=== PATIENT | female | born 1990 | race African-American/Black ===

== ENCOUNTER 2022-03-17 14:43 | Emergency (ER) | payer OTHER ==
[~2022-03-17] VITALS: Ht 160 cm; Wt 52.3 kg
[2022-03-17] MEDS ORDERED: KETOROLAC TROMETH 60MG/2ML VIAL IM ONE (21:15)
[2022-03-17 21:20] VITALS: BP 129/79
== END 2022-03-17 21:34 | disposition home or self-care (01) ==
LOC: ER 14:43
DX: M54.2 Cervicalgia (principal)
CPT/HCPCS: 72040; 96372; 99283; J1885

== ENCOUNTER 2024-06-19 19:46 | Inpatient (IN) | payer OTHER ==
[~2024-06-19] VITALS: Ht 160 cm; Wt 50.2 kg
--- NOTE | 2024-06-19 20:35 | ED.PDOC ---
History of Present Illness HPI Comments 34 y/o F brought in by family complaining of nausea and vomiting for the past 4 days, initially associated with diffuse abdominal pain, now associated with chest pain and shortness of breath. She denies any fever, diarrhea, constipation or dysuria. Chief Complaint: Nausea/Vomiting Time Seen by MD: 20:00 Primary Care Provider: none Reviewed Notes: Nurses Notes, Medications, Allergies Allergies: Coded Allergies: NO KNOWN ALLERGIES (Unverified , 03/17/22) Information Source: Patient Mode of Arrival: Wheelchair Severity: Moderate Timing: Days Duration: Since onset Prehospital treatment: None Past Medical History PAST MEDICAL HISTORY: Denies Surgical History: Denies all surgeries EARTH BURNER History: Denies all EARTH BURNER Hx Family History Family History: Reviewed,noncontributory to illness Social History Smoker: Non-Smoker Alcohol: Denies ETOH Use Drugs: Denies Drug Use Lives In: Home All Other Systems: Reviewed and Negative (Comprehensive systems review obtained and negative except for what is stated in the HPI.) Physical Exam General Appearance: Moderate Distress HEENT: Other (Pupils and face symmetric, dry mucous membranes) Neck: Full Range of Motion, Normal Inspection Respiratory: Lungs Clear, No Accessory Muscle Use, No Respiratory Distress, Normal Breath Sounds Cardiovascular: No Edema, No JVD, Tachycardia Breast Exam: Deferred Gastrointestinal: Diffuse, Soft, Tenderness Genitalia: Deferred Pelvic: Deferred Rectal: Deferred Extremities: Normal inspection, Normal range of motion, Non-tender, No pedal edema Neurologic: Alert (Oriented x4), Normal Affect, Other (Very anxious. Moves all extremities. No gross focal deficit.) Cerebellar Function: NOT DONE Reflexes: NOT DONE Skin: Dry, Pallor, Warm Lymphatic: NOT DONE Was a procedure done? Was a procedure done?: No EKG EKG : Comments Atrial rhythm, rate 82, normal intervals, normal axis, normal QRS, upsloping ST elevation in leads V 2 through V6 consistent with early repolarization, no other ST/T changes. Differential Dx Considerations may include: Gastritis, gastroenteritis, pancreatitis, bowel obstruction, colitis, biliary tract disease, ischemic bowel, UTI, anxiety, ACS, NC, arrhythmia, chest wall pain, respiratory infection, among others X-Ray, Labs, Meds, VS Vital Signs Date Time Temp Pulse Resp B/P (MAP) Pulse Ox O2 Delivery O2 Flow Rate FiO2 06/20/24 00:09 87 19 99 Room Air* 0 21 06/19/24 22:47 98.9 89 19 127/93 (104) 99 98.9 06/19/24 20:48 82 06/19/24 20:06 97.7 113 19 126/77 (93) 100 Lab Test 06/19/24 22:39 06/19/24 21:47 06/19/24 20:30 Range/Units Lactic Acid Level 1.9 2.9 *H 0.4-2.0 mmol/L Troponin I High Sensitivity 4 4 </=34 ng/L White Blood Count 14.8 H 4.4-10.8 10^3/uL Red Blood Count 5.49 H 4.0-5.20 10^6/uL Hemoglobin 16.1 12.2-16.2 g/dL Hematocrit 48.2 H 36.0-46.0 % Mean Corpuscular Volume 87.7 80.0-100.0 fL Mean Corpuscular Hemoglobin 29.3 28.0-32.0 pg Mean Corpuscular Hemoglobin Concent 33.4 32.0-36.0 g/dL Red Cell Distribution Width 14.4 H 11.8-14.3 % Platelet Count 430 140-450 10^3/uL Mean Platelet Volume 8.1 6.9-10.8 fL Neutrophils (%) (Auto) 91.5 H 37.0-80.0 % Lymphocytes (%) (Auto) 5.9 L 10.0-50.0 % Monocytes (%) (Auto) 2.3 0.0-12.0 % Eosinophils (%) (Auto) 0.0 0.0-7.0 % Basophils (%) (Auto) 0.3 0.0-2.0 % Neutrophils # (Auto) 13.6 H 1.6-8.6 10 ^3/uL Lymphocytes # (Auto) 0.9 0.4-5.4 10 ^3/uL Monocytes # (Auto) 0.3 0-1.3 10 ^3/uL Eosinophils # (Auto) 0 0-0.8 10 ^3/uL Basophils # (Auto) 0 0-0.2 10 ^3/uL Nucleated Red Blood Cells 0.0 % Sodium Level 133 L 136-145 mmol/L Potassium Level 3.4 L 3.5-5.1 mmol/L Chloride Level 98 98-107 mmol/L Carbon Dioxide Level 16 L 20-31 mmol/L Anion Gap 19 H 5-15 Blood Urea Nitrogen 17 9-23 mg/dL Creatinine 1.00 0.550-1.02 mg/dL Glomerular Filtration Rate Calc 76 >90 mL/min BUN/Creatinine Ratio 17.0 10.0-20.0 Serum Glucose 153 H 74-106 mg/dL Calcium Level 10.7 H 8.7-10.4 mg/dL Total Bilirubin 1.7 H 0.2-1.0 mg/dL Aspartate Amino Transferase (AST) 33 13-40 U/L Alanine Aminotransferase (ALT) 45 H 7-40 U/L Alkaline Phosphatase 68 46-116 U/L B-Type Natriuretic Peptide 5.14 0-100 pg/mL Total Protein 9.1 H 5.7-8.2 g/dL Albumin 5.6 H 3.2-4.8 g/dL Lipase 37 12-53 U/L Beta HCG, Quantitative 0.3 L 1.5-4.2 mIU/mL Current Medications Medications (Trade) Dose Ordered Sig/Joseph Route Start Time Stop Time Status Last Admin Sodium Chloride 2,000 ml @ 1,000 mls/hr Q2H ONCE IV 06/19/24 20:15 06/19/24 22:14 DC 06/19/24 23:05 Ondansetron HCl (Zofran) 4 mg ONCE ONCE IV 06/19/24 20:15 06/19/24 20:16 DC 06/19/24 23:06 Pantoprazole Sodium (Protonix) 40 mg ONCE ONCE IV 06/19/24 20:15 06/19/24 20:16 DC 06/19/24 23:06 PROCEDURE(s): CXRP - CHEST PORTABLE REASON: cp ORDER NUMBER(s): [id number], ACCESSION NUMBER(s): [id number] CHEST RADIOGRAPH Indication: cp Technique: Single frontal view of the chest was obtained Comparison: None FINDINGS: Lines and Tubes: None Lungs: Clear Pleura: No effusion. No pneumothorax. Cardiomediastinal contours: Unremarkable Bones: Unremarkable IMPRESSION: Clear lungs. X-Ray, Labs, Meds, VS Comment 34-year-old female with no significant past medical history complaining of nausea, vomiting and chest pain. Vitals remarkable for heart rate 113 Exam remarkable for tachycardia and anxiety Rhythm strip independently interpreted by me: Atrial rhythm, rate 82, no ectopy. Chest x-ray unremarkable CT abdomen and pelvis CBC remarkable for WBC 14.8, metabolic panel remarkable for sodium 133, potassium 3.4, CO2 16, lactate 2.9, now down to 1.9, troponins negative x2, BNP normal, lipase normal, UA pending Patient treated with the following in the ED: 2 L 0.9 normal saline IV bolus, Protonix 40 mg IV, Zofran 4 mg IV. Effervescent potassium 50 mEq p.o. was ordered, however patient stated she was still having nausea and did not think she could tolerate anything po. Reglan 10 mg IV was ordered. Plan is to admit the patient for emesis control. Time of 1ST Reevaluation: 20:30 Reevaluation 1ST: Unchanged Patient Education/Counseling: Diagnosis, Treatment Family Education/Counseling: No Family Present Departure 1 Departure Time of Disposition: 23:56 Impression: Primary Impression: Nausea and vomiting Qualified Codes: R11.2 - Nausea with vomiting, unspecified Additional Impression: Chest pain with low risk for cardiac etiology Disposition: ADMITTED INPATIENT Admit to: Med Surg Condition: Fair Critical Care Note Critical Care Time?: No Stability Stability form required: No Heart Score Heart Score: Heart Score Response (Comments) Value History Slightly Suspicious 0 EKG Repolarization Disturb 1 Age <45 0 Risk Factors No known risk factors 0 Troponin Normal limit 0 Total 1 I personally scribed for NAT HYMAN MD ([email or web address]) on 06/19/24 at 20:35. Electronically submitted by Jaret Reynolds ([email or web address]). I personally scribed for NAT HYMAN MD ([email or web address]) on 06/19/24 at 20:36. Electronically submitted by Jaret Reynolds [email or web address]). NAT HYMAN MD Jun 19, 2024 20:35
[2024-06-19 20:43] LABS: Basophils # (auto) 0 10 ^3/uL (0-0.2); Basophils % (auto) 0.3 % (0.0-2.0); Eosinophils # (auto) 0 10 ^3/uL (0-0.8); Hematocrit 48.2 % (36.0-46.0); Hemoglobin 16.1 g/dL (12.2-16.2); Lymphocytes # (auto) 0.9 10 ^3/uL (0.4-5.4); Lymphocytes % (auto) 5.9 % (10.0-50.0); Mean Corpuscular Hemoglobin 29.3 pg (28.0-32.0); Mean Corpuscular Hgb Conc. 33.4 g/dL (32.0-36.0); Mean Corpuscular Volume 87.7 fL (80.0-100.0); Monocytes # (auto) 0.3 10 ^3/uL (0-1.3); Monocytes % (auto) 2.3 % (0.0-12.0); Neutrophils # (auto) 13.6 10 ^3/uL (1.6-8.6); Neutrophils % (auto) 91.5 % (37.0-80.0); Platelet Count (auto) 430 10^3/uL (140-450); Red Blood Cells 5.49 10^6/uL (4.0-5.20); Red Cell Distribution Width 14.4 % (11.8-14.3); White Blood Cell 14.8 10^3/uL (4.4-10.8)
[2024-06-19 21:49] LABS: Lactic Acid w/Reflex 2.9 mmol/L (0.4-2.0)
[2024-06-19 21:58] LABS: Alkaline Phosphatase 68 U/L (46-116); Anion Gap 19 (5-15); Aspartate Aminotransferase 33 U/L (13-40); Blood Urea Nitrogen 17 mg/dL (9-23); Chloride 98 mmol/L (98-107); Lipase 37 U/L (12-53)
[2024-06-19 22:01] LABS: Alanine Aminotransferase 45 U/L (7-40); Albumin 5.6 g/dL (3.2-4.8); Bilirubin, Total 1.7 mg/dL (0.2-1.0); Calcium 10.7 mg/dL (8.7-10.4); Carbon Dioxide 16 mmol/L (20-31); Glucose 153 mg/dL (74-106); Potassium 3.4 mmol/L (3.5-5.1); Sodium 133 mmol/L (136-145); Total Protein 9.1 g/dL (5.7-8.2)
--- NOTE | 2024-06-19 22:37 | DVH ---
CHEST RADIOGRAPH Indication: cp Technique: Single frontal view of the chest was obtained Comparison: None FINDINGS: Lines and Tubes: None Lungs: Clear Pleura: No effusion. No pneumothorax. Cardiomediastinal contours: Unremarkable Bones: Unremarkable IMPRESSION: Clear lungs.
[2024-06-19] MEDS: SODIUM CHLORIDE 0.9% 2,000 ML IV ONE (23:05)
[2024-06-19] MEDS: ONDANSETRON HCL 4 MG/2 ML VIAL IV ONE (23:06)
[2024-06-19] MEDS: PANTOPRAZOLE 40 MG/10 ML VIAL INJ IV ONE (23:06)
[2024-06-20] VITALS (7 sets, daily range): BP systolic 106–138; BP diastolic 59–76; PULSE 69–87; RESP 16–19; TEMP 98.4–98.8; O2SAT 97–100
--- NOTE | 2024-06-20 00:12 | DVH ---
Exam: CT CT AB PEL WO CON-NO ORAL OR IV History: epig pain n/v Comparison Study: None available at time of dictation. Technique: Multidetector spiral CT of the abdomen was performed from lung bases to pubic symphysis. I maging was performed without IV contrast. Axial, coronal and sagittal multiplanar reformats were obta ined from the axial data set by the technologist. Radiation Dose : 1. Abdomen/Pelvis: CTDIvol 5.39 mGy, DLP 289.11 mGy*cm. Findings: Evaluation of solid organs is limited due to lack of intravenous contrast use. Lung Bases: No acute or significant lung base finding. Normal heart size. No pleural or pericardial effusion. Liver: The liver is normal in size. No focal lesions. Gallbladder and Biliary Tree: Unremarkable Spleen: Unremarkable Pancreas: The pancreas is grossly normal in appearance. Adrenal Glands: Unremarkable Kidneys: Kidneys are grossly normal without calculi or hydronephrosis. Bladder: Grossly unremarkable for degree of distention. Bowel: The stomach is grossly normal in appearance. Small bowel and colon are normal in caliber and d istribution. Normal appendix is visualized in the right lower quadrant without findings of appendicit is. Ascites: Absent Lymphadenopathy: No mesenteric, retroperitoneal or periportal lymphadenopathy. Abdominal Wall and Mesentery: Unremarkable. Vasculature: The visualized abdominal aorta is normal in size and caliber. Evaluation of abdominal a nd pelvic vessels is limited due to lack of intravenous contrast. Pelvic Organs: Retroverted and retroflexed uterus. Musculoskeletal: No aggressive focal bony lesions, acute fractures or dislocation. IMPRESSION: No acute abdominal or pelvic findings on this limited noncontrast evaluation. END IMPRESSION:
[2024-06-20] MEDS: METOCLOPRAMIDE HCL 5MG/ml INJ 2ml VIAL IV ONE (00:55)
[2024-06-20] MEDS: POTASSIUM EFFERVESENT TAB 25 MEQ PO ONE (00:55)
[2024-06-20] MEDS: SODIUM CHLORIDE 0.9% 2,000 ML IV ONE (01:07)
[2024-06-20] MEDS: FOLIC ACID 1 MG, MAGNESIUM SULF SDV 50% 8 MEQ, MULTIPLE VITAMIN 10 ML, THIAMINE INJ 100... INJ SCH (01:53)
[2024-06-20 03:11] LABS: Basophils # (auto) 0 10 ^3/uL (0-0.2); Basophils % (auto) 0.1 % (0.0-2.0); Eosinophils # (auto) 0 10 ^3/uL (0-0.8); Hematocrit 41.9 % (36.0-46.0); Hemoglobin 13.9 g/dL (12.2-16.2); Lymphocytes # (auto) 0.9 10 ^3/uL (0.4-5.4); Mean Corpuscular Hemoglobin 29.2 pg (28.0-32.0); Mean Corpuscular Hgb Conc. 33.2 g/dL (32.0-36.0); Mean Corpuscular Volume 87.8 fL (80.0-100.0); Monocytes # (auto) 0.6 10 ^3/uL (0-1.3); Monocytes % (auto) 4.9 % (0.0-12.0); Nucleated Red Blood Cells % 0.1 %; Platelet Count (auto) 365 10^3/uL (140-450); Red Blood Cells 4.77 10^6/uL (4.0-5.20); Red Cell Distribution Width 14.2 % (11.8-14.3); White Blood Cell 12.5 10^3/uL (4.4-10.8)
[2024-06-20 03:26] LABS: Alanine Aminotransferase 37 U/L (7-40); Albumin 4.6 g/dL (3.2-4.8); Alkaline Phosphatase 55 U/L (46-116); Anion Gap 11 (5-15); Aspartate Aminotransferase 24 U/L (13-40); BUN/Creatinine Ratio 19.2 (10.0-20.0); Blood Urea Nitrogen 15 mg/dL (9-23); Calcium 9.6 mg/dL (8.7-10.4); Carbon Dioxide 22 mmol/L (20-31); Chloride 105 mmol/L (98-107); Magnesium 1.9 mg/dL (1.6-2.6); Potassium 3.9 mmol/L (3.5-5.1); Sodium 138 mmol/L (136-145)
[2024-06-20 03:27] LABS: Phosphorus 3.6 mg/dL (2.4-5.1); Total Protein 7.3 g/dL (5.7-8.2)
[2024-06-20 03:32] LABS: Bilirubin, Total 1.4 mg/dL (0.2-1.0); Glucose 126 mg/dL (74-106)
--- NOTE | 2024-06-20 04:54 | DVHHPRES ---
History of Present Illness Resident Creating Document: JOANNA LA RESIDENT Reason for Visit: alcohol withdrawl History of Present Illness A 34-year-old female with no PMHx , brought in by family for persistent nausea, vomiting, and now chest pain and shortness of breath. The patient reports daily tequila use of about 4 shots, with her last drink on Tuesday night. She began experiencing nausea and vomiting on Tuesday, initially with diffuse abdominal pain, now accompanied by chest pain (midsternal, epigastric associated with constant emesis) and mild shortness of breath. Denies fever, diarrhea, constipation, or dysuria. Reports ongoing nausea that has not improved with oral medications; she also endorses recent marijuana use. her CIWA score is 6. LMP began on Tuesday. Review of Systems Constitutional: No: Fever, Chills, Sweats, Weakness, Malaise, Other Eyes: No: Pain, Vision change, Conjunctivae inflammation, Eyelid inflammation, Other, Redness ENT: No: Ear pain, Ear discharge, Nose pain, Nose discharge, Nose congestion, Mouth pain, Mouth swelling, Throat pain, Throat swelling, Other Respiratory: Shortness of breath; No: Cough, Dry, SOB with excertion, Wheezing, Hemoptysis, Pleuritic Pain, Sputum, Wheezing, Other Cardiovascular: Chest Pain; No: Palpitations, Orthopnea, Paroxysmal Noc. Dyspnea, Edema, Lt Headedness, Other Gastrointestinal: Nausea, Vomiting, Abdominal Pain; No: Diarrhea, Constipation, Melena, Hematochezia, Other Genitourinary: No Dysuria, No Frequency, No Incontinence, No Hematuria, No Retention, No Other Musculoskeletal: No: other, neck pain, shoulder pain, arm pain, back pain, hand pain, leg pain, foot pain Skin: No: Rash, Lesions, Jaundice, Bruising, Other Neurological: No: Weakness, Numbness, Incoordination, Change in speech, Confusion, Seizures, Other Allergies: Coded Allergies: NO KNOWN ALLERGIES (Unverified , 03/17/22) Medications Current Medications Medications Dose Ordered Sig/Joseph Route Start Time Stop Time Status Last Admin Dose Admin Folic Acid 1 mg/ Magnesium Sulfate 8 meq/ Multivitamins 10 ml/Thiamine HCl 100 mg/Sodium Chloride 1,013.2 ml @ 126.247 mls/hr DAILY@1800 INJ 06/20/24 01:00 06/20/24 01:53 126.247 MLS/HR Metoclopramide HCl 10 mg Q8HR IV 06/20/24 06:00 Ondansetron HCl 4 mg Q6HPRN IV 06/20/24 06:00 Pantoprazole Sodium 40 mg DAILY IV 06/20/24 10:00 Exam Vital Signs Vital Signs Date Time Temp Pulse Resp B/P (MAP) Pulse Ox O2 Delivery O2 Flow Rate FiO2 06/20/24 02:49 98.1 94 22 121/87 (98) 96 98.1 06/20/24 00:09 Room Air* 0 21 General Appearance: Alert, Oriented X3 HEENT: Other (dehydrated ) Respiratory: Clear to auscultation Cardiovascular: Regular rate, Normal S1, Normal S2 Abdominal: Normal bowel sounds, Soft Extremities: No clubbing, No cyanosis, No edema Skin: No rashes, No breakdown Neuro: Normal gait, Normal speech Psych/Mental Status: Mental status NL, Mood NL Labs/Xrays Labs Test 06/20/24 02:45 06/19/24 22:39 06/19/24 21:47 06/19/24 20:30 Range/Units White Blood Count 12.5 H 4.4-10.8 10^3/uL Red Blood Count 4.77 4.0-5.20 10^6/uL Hemoglobin 13.9 12.2-16.2 g/dL Hematocrit 41.9 # 36.0-46.0 % Mean Corpuscular Volume 87.8 80.0-100.0 fL Mean Corpuscular Hemoglobin 29.2 28.0-32.0 pg Mean Corpuscular Hemoglobin Concent 33.2 32.0-36.0 g/dL Red Cell Distribution Width 14.2 11.8-14.3 % Platelet Count 365 140-450 10^3/uL Mean Platelet Volume 7.8 6.9-10.8 fL Neutrophils (%) (Auto) 88.0 H 37.0-80.0 % Lymphocytes (%) (Auto) 7.0 L 10.0-50.0 % Monocytes (%) (Auto) 4.9 0.0-12.0 % Eosinophils (%) (Auto) 0.0 0.0-7.0 % Basophils (%) (Auto) 0.1 0.0-2.0 % Neutrophils # (Auto) 11.0 H 1.6-8.6 10 ^3/uL Lymphocytes # (Auto) 0.9 0.4-5.4 10 ^3/uL Monocytes # (Auto) 0.6 0-1.3 10 ^3/uL Eosinophils # (Auto) 0 0-0.8 10 ^3/uL Basophils # (Auto) 0 0-0.2 10 ^3/uL Nucleated Red Blood Cells 0.1 % Sodium Level 138 # 136-145 mmol/L Potassium Level 3.9 3.5-5.1 mmol/L Chloride Level 105 98-107 mmol/L Carbon Dioxide Level 22 20-31 mmol/L Anion Gap 11 5-15 Blood Urea Nitrogen 15 9-23 mg/dL Creatinine 0.78 0.550-1.02 mg/dL Glomerular Filtration Rate Calc 103 >90 mL/min BUN/Creatinine Ratio 19.2 10.0-20.0 Serum Glucose 126 H 74-106 mg/dL Calcium Level 9.6 8.7-10.4 mg/dL Phosphorus Level 3.6 2.4-5.1 mg/dL Magnesium Level 1.9 1.6-2.6 mg/dL Total Bilirubin 1.4 H 0.2-1.0 mg/dL Aspartate Amino Transferase (AST) 24 13-40 U/L Alanine Aminotransferase (ALT) 37 7-40 U/L Alkaline Phosphatase 55 46-116 U/L Total Protein 7.3 5.7-8.2 g/dL Albumin 4.6 3.2-4.8 g/dL Thyroid Stimulating Hormone (TSH) 2.10 0.55-4.78 uIU/mL Lactic Acid Level 1.9 0.4-2.0 mmol/L Troponin I High Sensitivity 4 </=34 ng/L B-Type Natriuretic Peptide 5.14 0-100 pg/mL Lipase 37 12-53 U/L Beta HCG, Quantitative 0.3 L 1.5-4.2 mIU/mL Assessment/Plan Assessment/Plan #Alcohol withdrawal CIWA score 6 #Severe dehydration #Hypokalemia resolved #SIRS w/o OD #Lactic acidosis #Hyperbilirubinemia Labs show leukocytosis (WBC 14.8) and some electrolyte abnormalities (Na 133, K 3.3, CO2 16). Lactate improved from 2.9 to 1.9. BNP and lipase are normal; troponins negative twice. Elevated [place] UA results pending. Normal EKG, abdomen ct scan and chest x ray Admit Banana bag NS 1 L bolus given Zofran and Reglan for hyperemesis Assess CIWA score if Librium is needed Potassium p.o. already given No need for antibiotic at the time Case discussed with Dr. Lugo Time spent on care 23 minutes Plan discussed with: Patient, Other (rn) My Orders Orders - JOANNA LA Procedure Category Date Status Time Admit ADMIT 06/20/24 Transmitted 00:52 Folic Acid... PHA 06/20/24 In Process 01:00 Metoclopramide PHA 06/20/24 In Process Injection (Reglan 06:00 Ondansetron Hcl PHA 06/20/24 In Process (Zofran) 06:00 Drug Screen LAB 06/20/24 Logged 00:52 Pantoprazole PHA 06/20/24 In Process (Protonix) 10:00 Date of Service: Jun 19, 2024 Billing Provider: JOSH LUGO MD Common Visit Codes: [id number] INP/OBS CARE (HIGH) JOANNA LA Jun 20, 2024 04:54 JOSH LUGO MD Jun 20, 2024 08:47
[2024-06-20] MEDS: ONDANSETRON HCL 4 MG/2 ML VIAL IV SCH (05:09)
[2024-06-20] MEDS: METOCLOPRAMIDE HCL 5MG/ml INJ 2ml VIAL IV SCH (05:09)
[2024-06-20 05:27] LABS: Folate (Folic Acid) 11.54 ng/mL (>5.38)
--- NOTE | 2024-06-20 06:32 | ECG ---
[facility] Test Date: 2024-06-19 Test Time: 20:47:56 Pat Name: TEOFILO L[address] Department: ED Room: 0284 Gender: F Customer Marketing Assistant: LEEANNA : 1990 Requested By: NAT RAMOS Order Number: [id number] Reading MD: Kam Posada Measurements Intervals [place] Rate: 85 P: -73 [place]: 104 QRS: 94 QRSD: 79 T: 47 QT: 399 QTc: 475 Interpretive Statements Ectopic atrial rhythm Short [place] interval Borderline right axis deviation ST elev, probable normal early repol pattern Electronically Signed On 06-21-2024 22:12:16 PST by Kam Posada Please click the below link to view image of tracing.
[2024-06-20] MEDS: PANTOPRAZOLE 40 MG/10 ML VIAL INJ IV SCH (10:05)
--- NOTE | 2024-06-20 13:34 | DVHPN2 ---
Reviewed: Care Plan, H&P, Labs, Medications, Previous Orders, Radiology Changes from previous H/P or p: No Changes Eyes: No Pain, No Vision change, No Conjunctivae inflammation, No Eyelid inflammation, No Other, No Redness ENT: No Ear pain, No Ear discharge, No Nose pain, No Nose discharge, No Nose congestion, No Mouth pain, No Mouth swelling, No Throat pain, No Throat swelling, No Other Cardiovascular: Chest Pain; No Palpitations, No Orthopnea, No Paroxysmal Noc. Dyspnea, No Edema, No Lt Headedness, No Other Respiratory: No Cough, No Dry; Shortness of breath; No SOB with excertion, No Wheezing, No Hemoptysis, No Pleuritic Pain, No Sputum, No Other Gastrointestinal: Nausea, Vomiting, Abdominal Pain; No Diarrhea, No Constipation, No Melena, No Hematochezia, No Other Genitourinary: No Dysuria, No Frequency, No Incontinence, No Hematuria, No Retention, No Other Musculoskeletal: No other, No neck pain, No shoulder pain, No arm pain, No back pain, No hand pain, No leg pain, No foot pain Skin: No Rash, No Lesions, No Jaundice, No Bruising, No Other Objective Vitals Vital Signs Date Time Temp Pulse Resp B/P (MAP) Pulse Ox O2 Delivery O2 Flow Rate FiO2 06/20/24 12:18 98.5 73 18 111/63 (79) 100 98.5 06/20/24 06:25 Room Air* 0 21 Intake/Output Intake and Output 06/20/24 07:00 Intake Total 2126.247 ml Balance 2126.247 ml Intake IV Total 2126.247 ml Medications Current Medications Medications Dose Ordered Sig/Joseph Route Start Time Stop Time Status Last Admin Dose Admin Metoclopramide HCl 10 mg Q8HR IV 06/20/24 06:00 06/20/24 13:10 10 MG Ondansetron HCl 4 mg Q6HPRN IV 06/20/24 06:00 06/20/24 11:48 4 MG Pantoprazole Sodium 40 mg DAILY IV 06/20/24 10:00 06/20/24 10:05 40 MG Folic Acid 1 mg/ Magnesium Sulfate 8 meq/ Multivitamins 10 ml/Thiamine HCl 100 mg/Sodium Chloride 1,013.2 ml @ 126.247 mls/hr DAILY@1800 INJ 06/21/24 18:00 Laboratory Results Laboratory Tests 06/20/24 02:45 Chemistry Test 06/19/24 20:30 06/20/24 02:45 Albumin 5.6 g/dL (3.2-4.8) H 4.6 g/dL (3.2-4.8) Calcium Level 10.7 mg/dL (8.7-10.4) H 9.6 mg/dL (8.7-10.4) Total Protein 9.1 g/dL (5.7-8.2) H 7.3 g/dL (5.7-8.2) Magnesium Level 1.9 mg/dL (1.6-2.6) Phosphorus Level 3.6 mg/dL (2.4-5.1) Lipid panel Test 06/19/24 20:30 Lipase 37 U/L (12-53) Cardiac Markers Test 06/19/24 20:30 B-Type Natriuretic Peptide 5.14 pg/mL (0-100) LFT Test 06/19/24 20:30 06/20/24 02:45 Alanine Aminotransferase (ALT) 45 U/L (7-40) H 37 U/L (7-40) Alkaline Phosphatase 68 U/L (46-116) 55 U/L (46-116) Aspartate Amino Transferase (AST) 33 U/L (13-40) 24 U/L (13-40) Total Bilirubin 1.7 mg/dL (0.2-1.0) H 1.4 mg/dL (0.2-1.0) H HgA1c, TSH Test 06/20/24 02:45 Thyroid Stimulating Hormone (TSH) 2.10 uIU/mL (0.55-4.78) Labs and/or images reviewed: Labs reviewed by me, Image(s) reviewed by me Assessment/Plan Assessment/Plan #Alcohol withdrawal UDS blood alcohol level banana bag Zofran pantoprazole #Severe dehydration #Hypokalemia resolved #SIRS w/o OD #Lactic acidosis #Hyperbilirubinemia Lipase normal Chronic current alcohol abuse: Counseled Plan discussed with: Patient My Orders Orders - DALE BOLAND MD Procedure Category Date Status Time Drug Screen LAB 06/20/24 Transmitted 13:31 Blood Alcohol LAB 06/20/24 Transmitted 13:31 Date of Service: Jun 20, 2024 Billing Provider: DALE BOLAND MD Common Visit Codes: [id number] INP/OBS CARE(HIGH) DALE BOLAND MD Jun 20, 2024 13:34
[2024-06-20] MEDS: chlordiazePOXIDE HCL 25 MG CAP PO SCH (18:19)
[2024-06-20] MEDS: SODIUM CHLORIDE 0.9% 1,000 ML IV SCH (18:43)
[2024-06-21 01:00] VITALS: BP 101/56; PULSE 60; TEMP 98.1; O2SAT 100
[2024-06-21] MEDS: chlordiazePOXIDE HCL 25 MG CAP PO SCH (08:39)
[2024-06-21 09:00] VITALS: BP 102/65; PULSE 75; RESP 17; TEMP 97.8; O2SAT 96
[2024-06-21 09:45] VITALS: BP 101/59; PULSE 87; RESP 18; TEMP 98.1; O2SAT 100
[2024-06-21] MEDS ORDERED: THIA100T13 PO (12:54)
[2024-06-21] MEDS ORDERED: FOLI-119 PO (12:54)
--- NOTE | 2024-06-21 12:54 | DVHPN2 ---
Reviewed: Care Plan, H&P, Labs, Medications, Previous Orders, Radiology Changes from previous H/P or p: No Changes Eyes: No Pain, No Vision change, No Conjunctivae inflammation, No Eyelid inflammation, No Other, No Redness ENT: No Ear pain, No Ear discharge, No Nose pain, No Nose discharge, No Nose congestion, No Mouth pain, No Mouth swelling, No Throat pain, No Throat swelling, No Other Cardiovascular: Chest Pain; No Palpitations, No Orthopnea, No Paroxysmal Noc. Dyspnea, No Edema, No Lt Headedness, No Other Respiratory: No Cough, No Dry; Shortness of breath; No SOB with excertion, No Wheezing, No Hemoptysis, No Pleuritic Pain, No Sputum, No Other Gastrointestinal: Nausea, Vomiting, Abdominal Pain; No Diarrhea, No Constipation, No Melena, No Hematochezia, No Other Genitourinary: No Dysuria, No Frequency, No Incontinence, No Hematuria, No Retention, No Other Musculoskeletal: No other, No neck pain, No shoulder pain, No arm pain, No back pain, No hand pain, No leg pain, No foot pain Skin: No Rash, No Lesions, No Jaundice, No Bruising, No Other Objective Vitals Vital Signs Date Time Temp Pulse Resp B/P (MAP) Pulse Ox O2 Delivery O2 Flow Rate FiO2 06/21/24 10:00 Room Air* 0 21 06/21/24 09:45 98.1 87 18 101/59 (73) 100 98.1 Intake/Output Intake and Output 06/21/24 07:00 Intake Total 1040 ml Balance 1040 ml Intake Oral 240 ml IV Total 800 ml # Voids 1 Medications Current Medications Medications Dose Ordered Sig/Joseph Route Start Time Stop Time Status Last Admin Dose Admin Metoclopramide HCl 10 mg Q8HR IV 06/20/24 06:00 06/21/24 05:40 10 MG Ondansetron HCl 4 mg Q6HPRN IV 06/20/24 06:00 06/21/24 11:41 4 MG Pantoprazole Sodium 40 mg DAILY IV 06/20/24 10:00 06/21/24 08:38 40 MG Folic Acid 1 mg/ Magnesium Sulfate 8 meq/ Multivitamins 10 ml/Thiamine HCl 100 mg/Sodium Chloride 1,013.2 ml @ 126.247 mls/hr DAILY@1800 INJ 06/21/24 18:00 Chlordiazepoxide HCl 50 mg Q12HR PO 06/21/24 10:00 06/21/24 22:01 06/21/24 08:39 50 MG Chlordiazepoxide HCl 25 mg Q12HR PO 06/22/24 10:00 06/22/24 22:01 Chlordiazepoxide HCl 25 mg QAM PO 06/23/24 07:00 06/23/24 07:01 Sodium Chloride 1,000 ml @ 150 mls/hr Q6H40M IV 06/20/24 14:45 06/21/24 10:25 150 MLS/HR Laboratory Results Laboratory Tests 06/20/24 02:45 Labs and/or images reviewed: Labs reviewed by me, Image(s) reviewed by me Assessment/Plan Assessment/Plan #Alcohol withdrawal UDS blood alcohol level banana bag Zofran pantoprazole #Severe dehydration #Hypokalemia resolved #SIRS w/o OD #Lactic acidosis #Hyperbilirubinemia Lipase normal Chronic current alcohol abuse: Counseled Plan discussed with: Patient My Orders Orders - DALE BOLAND MD Procedure Category Date Status Time Chlordiazepoxide Hcl PHA 06/21/24 In Process Capsule (Librium Ca 10:00 Chlordiazepoxide Hcl PHA 06/22/24 In Process Capsule (Librium Ca 10:00 Chlordiazepoxide Hcl PHA 06/23/24 In Process Capsule (Librium Ca 07:00 Sodium Chloride 0.9% PHA 06/20/24 In Process 14:45 Date of Service: Jun 21, 2024 Billing Provider: DALE BOLAND MD Common Visit Codes: [id number] INP/OBS CARE(HIGH) DLAE BOLAND MD Jun 21, 2024 12:54
--- NOTE | 2024-06-21 12:57 | DVHDS2 ---
Discharge Summary Date of Admission Jun 20, 2024 at 00:52 Date of Discharge: Jun 21, 2024 Admitting Diagnosis Acute alcoholic intoxication Wounds: none Labs/Diagnostic Data: Laboratory Results Test 06/20/24 13:56 06/20/24 02:45 06/19/24 22:39 06/19/24 21:47 Plasma/Serum Blood Alcohol < 3.0 mg/dL (<10) White Blood Count 12.5 10^3/uL (4.4-10.8) Red Blood Count 4.77 10^6/uL (4.0-5.20) Hemoglobin 13.9 g/dL (12.2-16.2) Hematocrit 41.9 % (36.0-46.0) Mean Corpuscular Volume 87.8 fL (80.0-100.0) Mean Corpuscular Hemoglobin 29.2 pg (28.0-32.0) Mean Corpuscular Hemoglobin Concent 33.2 g/dL (32.0-36.0) Red Cell Distribution Width 14.2 % (11.8-14.3) Platelet Count 365 10^3/uL (140-450) Mean Platelet Volume 7.8 fL (6.9-10.8) Neutrophils (%) (Auto) 88.0 % (37.0-80.0) Lymphocytes (%) (Auto) 7.0 % (10.0-50.0) Monocytes (%) (Auto) 4.9 % (0.0-12.0) Eosinophils (%) (Auto) 0.0 % (0.0-7.0) Basophils (%) (Auto) 0.1 % (0.0-2.0) Neutrophils # (Auto) 11.0 10 ^3/uL (1.6-8.6) Lymphocytes # (Auto) 0.9 10 ^3/uL (0.4-5.4) Monocytes # (Auto) 0.6 10 ^3/uL (0-1.3) Eosinophils # (Auto) 0 10 ^3/uL (0-0.8) Basophils # (Auto) 0 10 ^3/uL (0-0.2) Nucleated Red Blood Cells 0.1 % Sodium Level 138 mmol/L (136-145) Potassium Level 3.9 mmol/L (3.5-5.1) Chloride Level 105 mmol/L (98-107) Carbon Dioxide Level 22 mmol/L (20-31) Anion Gap 11 (5-15) Blood Urea Nitrogen 15 mg/dL (9-23) Creatinine 0.78 mg/dL (0.550-1.02) Glomerular Filtration Rate Calc 103 mL/min (>90) BUN/Creatinine Ratio 19.2 (10.0-20.0) Serum Glucose 126 mg/dL (74-106) Calcium Level 9.6 mg/dL (8.7-10.4) Phosphorus Level 3.6 mg/dL (2.4-5.1) Magnesium Level 1.9 mg/dL (1.6-2.6) Total Bilirubin 1.4 mg/dL (0.2-1.0) Aspartate Amino Transferase (AST) 24 U/L (13-40) Alanine Aminotransferase (ALT) 37 U/L (7-40) Alkaline Phosphatase 55 U/L (46-116) Total Protein 7.3 g/dL (5.7-8.2) Albumin 4.6 g/dL (3.2-4.8) Vitamin B12 Level 1158 pg/mL (211-911) Vitamin D 25-Hydroxy 6.6 ng/mL (30.0-100) Folic Acid 11.54 ng/mL (>5.38) Thyroid Stimulating Hormone (TSH) 2.10 uIU/mL (0.55-4.78) Lactic Acid Level 1.9 mmol/L (0.4-2.0) Troponin I High Sensitivity 4 ng/L (</=34) Test 06/19/24 20:30 B-Type Natriuretic Peptide 5.14 pg/mL (0-100) Lipase 37 U/L (12-53) Beta HCG, Quantitative 0.3 mIU/mL (1.5-4.2) Other Laboratory Tests 06/20/24 02:45 Brief Hx & Hospital Course: 34-year-old female with a history of alcohol abuse came in for abdominal pain nausea vomiting patient's patient was found to be in alcohol withdrawal treated with a banana bag Zofran IV fluids for dehydration hypokalemia resolved with the replacement lipase normal. At the time of discharge patient is alert awake tolerating regular diet and wants to go home afebrile stable vital signs. Discharged home on thiamine and folic acid advised to stop drinking alcohol Consults/Reason for consult None Operations or Procedures None Condition at Discharge: Fair Final Diagnosis/Problems List #Alcohol withdrawal UDS blood alcohol level banana bag Zofran pantoprazole #Severe dehydration #Hypokalemia resolved #SIRS w/o OD #Lactic acidosis #Hyperbilirubinemia Lipase normal Chronic current alcohol abuse: Counseled Discharge Disposition: Home Discharge Instruct/Medications Diet: Regular Activity: Light activity Follow Up/Referral: .stop Drinking alcohol Follow up with your primary Dr Use medications as prescribed Medications: Thiamine Folic acid Discharge Statement: "Patient was advised to return to the ER or call 911 if any headaches, dizziness, shortness of breath, chest pain, abdominal pain, bleeding, fevers, or worsening of medical condition. Patient was counseled about treatment plan, medications, possible side effects, patientverbalized understanding. All questions were answered to the best of my ability. This discharge took greater then 30 minutes in planning, reviewing documentation, counseling the patient, and discussing with other team members." ASSESSMENT ASSESSMENT Hospital Course Improved Assessment #Alcohol withdrawal UDS blood alcohol level banana bag Zofran pantoprazole #Severe dehydration #Hypokalemia resolved #SIRS w/o OD #Lactic acidosis #Hyperbilirubinemia Lipase normal Chronic current alcohol abuse: Counseled Date of Service: Jun 21, 2024 Billing Provider: DALE BOLAND MD Common Visit Codes: 13300-DLP/OBS DISCH DAY >30min DALE BOLAND MD Jun 21, 2024 12:57
[2024-06-21 13:00] VITALS: BP 109/75; PULSE 86; RESP 16; TEMP 97.4; O2SAT 100
[2024-06-21 14:33] VITALS: BP 101/59; PULSE 87; RESP 18; TEMP 36.7; O2SAT 100
[2024-06-21 17:00] VITALS: BP 105/62; PULSE 59; RESP 16; TEMP 98; O2SAT 100
[2024-06-21] MEDS ORDERED: FOLIC ACID 1 MG, MAGNESIUM SULF SDV 50% 8 MEQ, MULTIPLE VITAMIN 10 ML, THIAMINE INJ 100... INJ SCH (18:00)
[2024-06-22] MEDS ORDERED: chlordiazePOXIDE HCL 25 MG CAP PO SCH (10:00)
--- NOTE | 2024-06-22 11:31 | ECG ---
[facility] Test Date: 2024-06-19 Test Time: 20:48:44 Pat Name: TEOFIL[address] L[address] Department: ED Room: 0284 B Gender: F Treatment Counselor: LEEANNA : 1990 Requested By: NAT RAMOS Order Number: [id number] Reading MD: Kam Posada Measurements Intervals [place] Rate: 82 P: -69 AK: 102 QRS: 95 QRSD: 79 T: 46 QT: 392 QTc: 458 Interpretive Statements Ectopic atrial rhythm Short AK interval Borderline right axis deviation ST elev, probable normal early repol pattern Electronically Signed On 06-26-2024 21:39:57 PST by Kam Posada Please click the below link to view image of tracing.
[2024-06-23] MEDS ORDERED: chlordiazePOXIDE HCL 25 MG CAP PO SCH (07:00)
== END 2024-06-21 17:08 | disposition home or self-care (01) | DRG 422 ==
LOC: ER 19:46 → OVERFLOW 06-20 00:52 → WEST WING 06-21 09:46
PROVIDERS: ADMIT Family Medicine; ATTEND Family Medicine
DX: E86.0 Dehydration (principal); E87.20 Acidosis, unspecified; R65.10 Systemic inflammatory response syndrome (SIRS) of non-infectious origin without acute organ dysfunction; F10.139 Alcohol abuse with withdrawal, unspecified; E87.6 Hypokalemia; E80.6 Other disorders of bilirubin metabolism; Z79.899 Other long term (current) drug therapy; Y90.9 Presence of alcohol in blood, level not specified; Z68.1 Body mass index [BMI] 19.9 or less, adult
CPT/HCPCS: 36415; 71045; 74176; 80053; 80320; 82306; 82607; 82746; 83605; 83690; 83735; 83880; 84100; 84443; 84484; 84702; 85025; 93005; 96361; 96374; 96375; G0378; J2405; J2470

== ENCOUNTER 2024-07-02 08:52 | Inpatient (IN) | payer OTHER ==
[~2024-07-02] VITALS: Ht 160 cm; Wt 53.3 kg
[~2024-07-02 08:52] MED LIST: FOLI-119 PO; THIA100T13 PO
--- NOTE | 2024-07-02 09:13 | ECG ---
[facility] Test Date: 2024-07-02 Test Time: 09:03:05 Pat Name: TEOFIL[address] L[address] Department: ER Room: 0281T Gender: F Spreader Operator Automatic: ALONZO : 1990 Requested By: RANULFO LARES Order Number: [id number] Reading MD: Kam Posada Measurements Intervals [place] Rate: 106 P: 87 IN: 112 QRS: 72 QRSD: 76 T: 24 QT: 346 QTc: 460 Interpretive Statements Sinus tachycardia Atrial premature complex Probable left atrial enlargement Minimal ST depression, diffuse leads Baseline wander in lead(s) V2 Electronically Signed On 07-07-2024 17:10:50 PST by aKm Posada Please click the below link to view image of tracing.
--- NOTE | 2024-07-02 09:18 | ED.PDOC ---
History of Present Illness HPI Comments 34 year old female presents to the ED with a chief complaint of generalized weakness onset today (07/02/24). Patient states she consumes ETOH heavily, was seen in this E about 1 week ago for ETOH withdraws. Patient states her last drink was last night, vodka. She was in a car this morning when she began expe riencing generalized weakness, family believed it was a possible seizure. Upon ED patient is tachycardiac with elevated BP, states she has her eyes closed to control her breathing. Patient denies chest pain, nausea, vomiting, diarrhea, dysuria, cough, congestion. No other symptoms or modifying factors present at this time. Chief Complaint: Withdrawal Time Seen by MD: 09:08 Primary Care Provider: none Reviewed Notes: Medications, Allergies Allergies: Coded Allergies: NO KNOWN ALLERGIES (Unverified , 03/17/22) Home Meds Active Scripts Folic Acid (Folic Acid) 1 Mg Tab, 1 MG PO DAILY, #30 TAB Prov:DALE BOLAND MD 06/21/24 Thiamine HCl (Thiamine Hydrochloride) 100 Mg Tab, 100 MG PO DAILY, #30 TAB Prov:DALE BOLAND MD 06/21/24 Information Source: Patient Severity: Moderate Timing: Hours Duration: Since onset Prehospital treatment: None Past Medical History PAST MEDICAL HISTORY: Denies Surgical History: Denies all surgeries SECURITY SHIFT MANAGER History: Denies all SECURITY SHIFT MANAGER Hx Family History Family History: Reviewed,noncontributory to illness Social History Smoker: Non-Smoker Alcohol: Heavy Drugs: Denies Drug Use Lives In: Home Constitutional: reports: weakness; denies: chills, diaphoresis, fatigue, fever, malaise, sweats, others EENTM: denies: blurred vision, double vision, ear bleeding, ear discharge, ear drainage, ear pain, ear ringing, eye pain, eye redness, hearing loss, mouth pain, mouth swelling, nasal discharge, nose bleeding, nose congestion, nose pain, photophobia, tearing, throat pain, throat swelling, voice changes, others Respiratory: denies: cough, hemoptysis, orthopnea, SOB at rest, shortness of breath, SOB with excertion, stridor, wheezing, others Cardiovascular: denies: chest pain, dizzy spells, diaphoresis, Dyspnea on exertion, edema, irregular heart beat, left arm pain, lightheadedness, palpitations, PND, syncope, others Gastrointestinal: denies: abdomen distended, abdominal pain, blood streaked bowels, constipated, diarrhea, dysphagia, difficulty swallowing, hematemesis, melena, nausea, poor appetite, poor fluid intake, rectal bleeding, rectal pain, vomiting, others Genitourinary: denies: abnormal vagina bleeding, burning, dyspareunia, dysuria, flank pain, frequency, hematuria, incontinence, pain, , vagina discharge, urgency, others Neurological: reports: weakness, others (possible seizure ); denies: dizziness, fainting, headache, left sided numbness, left sided weakness, numbness, paresthesia, pre-existing deficit, right sided numbness, right sided weakness, seizure, speech problems, tingling, tremors Musculoskeletal: denies: back pain, gout, joint pain, joint swelling, muscle pain, muscle stiffness, neck pain, others Integumetry: denies: bruises, change in color, change in hair/nails, dryness, laceration, lesions, lumps, rash, wounds, others Allergic/Immunocompromised: denies: Difficulty Healing, Frequent Infections, Hives, Itching, others Hematologic/Lymphatic: denies: anemia, blood clots, easy bleeding, easy bruising, swollen glands, others Endocrine: denies: excessive hunger, excessive sweating, excessive thirst, excessive urination, flushing, intolerance to cold, intolerance to heat, unexplained weight gain, unexplained weight loss, others Psychiatric: denies: anxiety, bipolar disorder, depression, hopeless, panic disorder, schizophrenia, sleepless, suicidal, others All Other Systems: Reviewed and Negative Physical Exam General Appearance: Moderate Distress HEENT: Normal ENT Inspection, Pharynx Normal, TMs Normal Neck: Full Range of Motion, Non-Tender, Normal, Normal Inspection Respiratory: Chest Non-Tender, Lungs Clear, No Accessory Muscle Use, No Respiratory Distress, Normal Breath Sounds Cardiovascular: Tachycardia Breast Exam: Deferred Gastrointestinal: No Organomegaly, Non Tender, No Pulsatile Mass, Normal Bowel Sounds, Soft Genitalia: Deferred Pelvic: Deferred Rectal: Deferred Extremities: No calf tenderness, Normal capillary refill, Normal inspection, Normal range of motion, Non-tender, No pedal edema Musculoskeletal : Apperance: Normal Neurologic: Alert, instructional technologist II-XII nml as Tested, No Motor Deficits, Normal Affect, Normal Mood, No Sensory Deficits Cerebellar Function: NOT DONE Reflexes: NOT DONE Skin: Normal Color Peripheral Pulses: 3+ Radial (R), 3+ Radial (L) Lymphatic: No Adenopathy Was a procedure done? Was a procedure done?: No Differential Dx Considerations may include: Alcohol withdrawal Electrolyte imbalance X-Ray, Labs, Meds, VS Vital Signs Date Time Temp Pulse Resp B/P (MAP) Pulse Ox O2 Delivery O2 Flow Rate FiO2 07/02/24 10:04 98.2 72 12 131/82 (98) 100 98.2 07/02/24 10:02 73 12 99 Room Air* 0 21 07/02/24 09:03 106 07/02/24 09:00 97.9 162 28 158/103 (121) 96 Lab Test 07/02/24 09:22 Range/Units White Blood Count 8.8 4.4-10.8 10^3/uL Red Blood Count 4.76 4.0-5.20 10^6/uL Hemoglobin 13.9 12.2-16.2 g/dL Hematocrit 42.7 36.0-46.0 % Mean Corpuscular Volume 89.7 80.0-100.0 fL Mean Corpuscular Hemoglobin 29.1 28.0-32.0 pg Mean Corpuscular Hemoglobin Concent 32.4 32.0-36.0 g/dL Red Cell Distribution Width 15.2 H 11.8-14.3 % Platelet Count 441 140-450 10^3/uL Mean Platelet Volume 7.8 6.9-10.8 fL Neutrophils (%) (Auto) 59.3 37.0-80.0 % Lymphocytes (%) (Auto) 29.0 10.0-50.0 % Monocytes (%) (Auto) 8.6 0.0-12.0 % Eosinophils (%) (Auto) 1.9 0.0-7.0 % Basophils (%) (Auto) 1.2 0.0-2.0 % Neutrophils # (Auto) 5.2 1.6-8.6 10 ^3/uL Lymphocytes # (Auto) 2.6 0.4-5.4 10 ^3/uL Monocytes # (Auto) 0.8 0-1.3 10 ^3/uL Eosinophils # (Auto) 0.2 0-0.8 10 ^3/uL Basophils # (Auto) 0.1 0-0.2 10 ^3/uL Nucleated Red Blood Cells 0.0 % Sodium Level 138 136-145 mmol/L Potassium Level 4.0 3.5-5.1 mmol/L Chloride Level 102 98-107 mmol/L Carbon Dioxide Level 17 L 20-31 mmol/L Anion Gap 19 H 5-15 Blood Urea Nitrogen 5 L 9-23 mg/dL Creatinine 0.88 0.550-1.02 mg/dL Glomerular Filtration Rate Calc 89 >90 mL/min BUN/Creatinine Ratio 5.7 L 10.0-20.0 Serum Glucose 124 H 74-106 mg/dL Calcium Level 9.6 8.7-10.4 mg/dL Troponin I High Sensitivity < 3 L </=34 ng/L Plasma/Serum Blood Alcohol 19.1 H <10 mg/dL Current Medications Medications (Trade) Dose Ordered Sig/Joseph Route Start Time Stop Time Status Last Admin Sodium Chloride 1,000 ml @ 1,000 mls/hr Q1H ONCE IV 07/02/24 09:15 07/02/24 10:14 DC 07/02/24 09:29 Sodium Chloride 1,000 ml @ 150 mls/hr Q6H40M ONCE IV 07/02/24 09:15 07/02/24 15:54 07/02/24 09:29 Thiamine HCl 100 mg ONCE ONCE IV 07/02/24 09:15 07/02/24 09:16 DC 07/02/24 09:29 Lorazepam (Ativan Inj) 2 mg ONCE ONCE IV 07/02/24 09:45 07/02/24 09:46 DC 07/02/24 09:52 Patient alert. Complaining of chest discomfort shaking. Vitals stable. Answering all questions. Blood alcohol level elevated. WBC within normal limits. Hemoglobin within normal limits. Was given Ativan. Establish intravenous access. Was given fluids. Was given thiamine. WBC within normal limits. Blood pressure elevated. Possibly from her withdrawal. Reviewed her previous visit. Explained to the patient. Continue cardiac monitoring. EKG reviewed does not show any acute changes. Time of 1ST Reevaluation: 09:38 Reevaluation 1ST: Unchanged Patient Education/Counseling: Diagnosis, Treatment, Prognosis Family Education/Counseling: No Family Present Additional Information The following tests were ordered, and results were reviewed by me: EKG, TROP, CBC, UA, BMP, BLOOD ALCOHOL I discussed treatment and results with medical personnel and: patient Departure 1 Departure Time of Disposition: 10:34 Impression: Primary Impression: Alcohol withdrawal Qualified Codes: F10.939 - Alcohol use, unspecified with withdrawal, unspecified Additional Impression: HTN (hypertension) Qualified Codes: I10 - Essential (primary) hypertension Disposition: ADMITTED INPATIENT Admit to: Med Surg Condition: Guarded Critical Care Note Critical Care Time?: Yes (45 min-critical care time only) Critical care comment: She is withdrawing Stability Stability form required: No Heart Score Heart Score: Heart Score Response (Comments) Value History Slightly Suspicious 0 EKG Normal 0 Age <45 0 Risk Factors No known risk factors 0 Troponin Normal limit 0 Total 0 I personally scribed for RANULFO LARES MD ([email or web address]) on 07/02/24 at 09:18. Electronically submitted by Yola Espinoza ([email or web address]). I personally scribed for RANULFO LARES MD ([email or web address]) on 07/02/24 at 10:49. Electronically submitted by Yola Espinoza ([email or web address]). RANULFO LARES MD Jul 02, 2024 09:18
[2024-07-02] MEDS: SODIUM CHLORIDE 0.9% 1,000 ML IV ONE ×2 (09:29)
[2024-07-02] MEDS: THIAMINE 100mg/ml INJ (200mg/2ml VIAL) IV ONE (09:29)
[2024-07-02 09:36] LABS: Basophils # (auto) 0.1 10 ^3/uL (0-0.2); Basophils % (auto) 1.2 % (0.0-2.0); Eosinophils # (auto) 0.2 10 ^3/uL (0-0.8); Eosinophils % (auto) 1.9 % (0.0-7.0); Hematocrit 42.7 % (36.0-46.0); Hemoglobin 13.9 g/dL (12.2-16.2); Lymphocytes # (auto) 2.6 10 ^3/uL (0.4-5.4); Mean Corpuscular Hemoglobin 29.1 pg (28.0-32.0); Mean Corpuscular Hgb Conc. 32.4 g/dL (32.0-36.0); Mean Corpuscular Volume 89.7 fL (80.0-100.0); Monocytes # (auto) 0.8 10 ^3/uL (0-1.3); Monocytes % (auto) 8.6 % (0.0-12.0); Neutrophils # (auto) 5.2 10 ^3/uL (1.6-8.6); Neutrophils % (auto) 59.3 % (37.0-80.0); Platelet Count (auto) 441 10^3/uL (140-450); Red Blood Cells 4.76 10^6/uL (4.0-5.20); Red Cell Distribution Width 15.2 % (11.8-14.3); White Blood Cell 8.8 10^3/uL (4.4-10.8)
[2024-07-02] MEDS: LORazepam 2MG/ML-1ML VIAL ONE (09:49)
[2024-07-02] MEDS: LORazepam 2MG/ML-1ML VIAL IV ONE (09:52)
[2024-07-02 10:02] VITALS: PULSE 73; RESP 12; O2SAT 99
[2024-07-02 10:06] LABS: Chloride 102 mmol/L (98-107); Sodium 138 mmol/L (136-145)
[2024-07-02 10:07] LABS: Anion Gap 19 (5-15); Calcium 9.6 mg/dL (8.7-10.4)
[2024-07-02 10:12] LABS: Blood Alcohol 19.1 mg/dL (<10)
[2024-07-02 10:15] LABS: Blood Urea Nitrogen 5 mg/dL (9-23); Carbon Dioxide 17 mmol/L (20-31); Glucose 124 mg/dL (74-106)
[2024-07-02 10:23] LABS: BUN/Creatinine Ratio 5.7 (10.0-20.0)
[2024-07-02] MEDS ORDERED: ONDANSETRON HCL 4 MG/2 ML VIAL IV PRN (11:15)
[2024-07-02] MEDS ORDERED: HYDROcodone-ACET 5/325MG TAB PO PRN (11:15)
--- NOTE | 2024-07-02 12:15 | DVHHP2 ---
History of Present Illness Reason for Visit: General weakness History of Present Illness nikhil Tierney is a 34-year-old female with past medical history of ETOH abuse who presents to the ED with generalized weakness and ETOH withdrawals. She reports that she drinks about 5 large cups (240oz) each per day of hard liquor for the last 1 year. 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 Patient reports that she has not sought out help or seeked rehab. She denies tremors, visual hallucinations, auditory hallucinations, nausea, vomiting, diarrhea, abdominal pain, chest pain, shortness of breath, fever, chills, and dizziness. Past Medical History ETOH abuse Past Surgical History: None Family History: None Smoke: No ALCOHOL: heavy Drugs: None Lives: with Family Domestic Violence: Neg Review of Systems Constitutional: Yes: Weakness Allergies: Coded Allergies: NO KNOWN ALLERGIES (Unverified , 03/17/22) Exam Vital Signs Vital Signs Date Time Temp Pulse Resp B/P (MAP) Pulse Ox O2 Delivery O2 Flow Rate FiO2 07/02/24 10:04 98.2 72 12 131/82 (98) 100 98.2 07/02/24 10:02 Room Air* 0 21 General Appearance: Alert, Oriented X3, Cooperative, No acute distress HEENT: Atraumatic, PERRLA, EOMI, Mucous membr. moist/pink Respiratory: Clear to auscultation, Normal air movement Cardiovascular: Normal S1, Normal S2, No murmurs Abdominal: Normal bowel sounds, Soft, No tenderness, No hepatospenomegaly, No masses Extremities: No clubbing, No cyanosis, No edema, Normal pulses, No tenderness/swelling Skin: No rashes, No breakdown, No significant lesion Neuro: Normal gait, Normal speech, Strength at 5/5 X4 ext, Normal tone, Sensation intact Psych/Mental Status: Mental status NL, Mood NL Labs/Xrays Labs Test 07/02/24 09:22 Range/Units White Blood Count 8.8 4.4-10.8 10^3/uL Red Blood Count 4.76 4.0-5.20 10^6/uL Hemoglobin 13.9 12.2-16.2 g/dL Hematocrit 42.7 36.0-46.0 % Mean Corpuscular Volume 89.7 80.0-100.0 fL Mean Corpuscular Hemoglobin 29.1 28.0-32.0 pg Mean Corpuscular Hemoglobin Concent 32.4 32.0-36.0 g/dL Red Cell Distribution Width 15.2 H 11.8-14.3 % Platelet Count 441 140-450 10^3/uL Mean Platelet Volume 7.8 6.9-10.8 fL Neutrophils (%) (Auto) 59.3 37.0-80.0 % Lymphocytes (%) (Auto) 29.0 10.0-50.0 % Monocytes (%) (Auto) 8.6 0.0-12.0 % Eosinophils (%) (Auto) 1.9 0.0-7.0 % Basophils (%) (Auto) 1.2 0.0-2.0 % Neutrophils # (Auto) 5.2 1.6-8.6 10 ^3/uL Lymphocytes # (Auto) 2.6 0.4-5.4 10 ^3/uL Monocytes # (Auto) 0.8 0-1.3 10 ^3/uL Eosinophils # (Auto) 0.2 0-0.8 10 ^3/uL Basophils # (Auto) 0.1 0-0.2 10 ^3/uL Nucleated Red Blood Cells 0.0 % Sodium Level 138 136-145 mmol/L Potassium Level 4.0 3.5-5.1 mmol/L Chloride Level 102 98-107 mmol/L Carbon Dioxide Level 17 L 20-31 mmol/L Anion Gap 19 H 5-15 Blood Urea Nitrogen 5 L 9-23 mg/dL Creatinine 0.88 0.550-1.02 mg/dL Glomerular Filtration Rate Calc 89 >90 mL/min BUN/Creatinine Ratio 5.7 L 10.0-20.0 Serum Glucose 124 H 74-106 mg/dL Calcium Level 9.6 8.7-10.4 mg/dL Troponin I High Sensitivity < 3 L </=34 ng/L Plasma/Serum Blood Alcohol 19.1 H <10 mg/dL Assessment/Plan Assessment/Plan Assessment ETOH withdrawal Generalized weakness likely due to ETOH abuse Plan Admit to tele CIWA protocol Antiemetics Pain management Lipase Amylase LDH phos PT/INR ammonia Vitamin B1 Counseled patient on alcohol cessation Chest x-ray ordered Diet Home medication continued Plan discussed with: Patient My Orders Orders - MARYBETH FRIEND SPECIAL LIBRARIAN Procedure Category Date Status Time Drug Screen LAB 07/02/24 Verified 11:05 Librium PHA 07/02/24 Verified 11:15 Magnesium LAB 07/02/24 Verified 11:05 Thiamine 100mg Po PHA 07/03/24 Verified Daily 10:00 Folic Acid 1mg Po PHA 07/03/24 Verified Daily 10:00 Mvi Tablet Po Daily PHA 07/03/24 Verified 10:00 Thiamine 100mg Po Now PHA 07/02/24 Verified 11:15 Mvi 1 Tablet Po Now PHA 07/02/24 Verified 11:15 Folic Acid 1mg Po Now PHA 07/02/24 Verified 11:15 Ondansetron Hcl PHA 07/02/24 Verified (Zofran) 11:15 Admit ADMIT 07/02/24 Verified 11:05 Allergies HALEY 07/02/24 Verified 11:05 Code Status CODE 07/02/24 Verified 11:05 2 Gm Sodium Diet DIET 07/02/24 Verified Lunch 0.9% Ns 1000 Ml PHA 07/02/24 Verified 11:15 Hydrocodone-Acet PHA 07/02/24 Verified 5/325mg Tab (Turner 11:15 Complete Blood Count LAB 07/03/24 Verified 04:00 Comprehensive LAB 07/03/24 Verified Metabolic Panel 04:00 Acetaminophen Tablet PHA 07/02/24 Verified (Tylenol Tablet) 11:15 Date of Service: Jul 02, 2024 Billing Provider: MARYBETH FRIEND Common Visit Codes: [id number] INP/OBS CARE (HIGH) MARYBETH FRIEND Jul 02, 2024 12:15
[2024-07-02] MEDS: SODIUM CHLORIDE 0.9% 1,000 ML IV SCH (12:30)
--- NOTE | 2024-07-02 12:37 | DVH ---
CLINICAL INFORMATION: 34 years old, Female; weakness. TECHNIQUE: Single AP portable chest radiograph was obtained. COMPARISON: XY CHEST PORTABLE on DOS: 06/19/24 FINDINGS: Lungs: Clear. Cardiac: Heart size is within normal limits. Pulmonary vasculature: Unremarkable. Mediastinum/patricia: Unremarkable. Bones: No acute osseous abnormality identified. Other: No other significant findings. IMPRESSION: No evidence of acute disease in the chest.
[2024-07-02] MEDS: THIAMINE HCL 100 MG TAB PO ONE (12:39)
[2024-07-02] MEDS: chlordiazePOXIDE HCL 25 MG CAP PO ONE (12:39)
[2024-07-02] MEDS: MULTIPLE VITAMIN TAB PO ONE (12:39)
[2024-07-02] MEDS: FOLIC ACID 1 MG TAB PO ONE (12:39)
[2024-07-02 12:51] LABS: Bilirubin, Total 0.9 mg/dL (0.2-1.0)
[2024-07-02 12:59] LABS: Prothrombin Time 10.6 sec (9.3-11.8)
[2024-07-02 13:21] LABS: Hepatitis A Ab IgM Negative; Hepatitis B Surface Antigen Negative (Negative)
[2024-07-02 13:23] LABS: Hepatitis B Core IgM Negative (Negative); Hepatitis C Antibody Negative (Negative)
[2024-07-02 17:11] VITALS: PULSE 66; RESP 18; O2SAT 98
[2024-07-02 21:00] VITALS: BP 137/80; PULSE 70; RESP 16; TEMP 98.3; O2SAT 100
[2024-07-02 22:15] VITALS: PULSE 70; RESP 18; O2SAT 100
[2024-07-02 22:16] VITALS: BP 150/93; PULSE 79; RESP 18; TEMP 97.8; O2SAT 97
[2024-07-03] VITALS (7 sets, daily range): BP systolic 116–148; BP diastolic 79–91; PULSE 66–95; RESP 16–18; TEMP 97.9–98.3; O2SAT 97–100
[2024-07-03 07:40] LABS: Basophils # (auto) 0.1 10 ^3/uL (0-0.2); Basophils % (auto) 1.1 % (0.0-2.0); Eosinophils # (auto) 0.3 10 ^3/uL (0-0.8); Eosinophils % (auto) 3.6 % (0.0-7.0); Hematocrit 36.4 % (36.0-46.0); Hemoglobin 12.3 g/dL (12.2-16.2); Lymphocytes % (auto) 24.6 % (10.0-50.0); Mean Corpuscular Hgb Conc. 33.9 g/dL (32.0-36.0); Mean Corpuscular Volume 88.5 fL (80.0-100.0); Monocytes # (auto) 0.6 10 ^3/uL (0-1.3); Monocytes % (auto) 7.2 % (0.0-12.0); Neutrophils # (auto) 5.2 10 ^3/uL (1.6-8.6); Neutrophils % (auto) 63.5 % (37.0-80.0); Platelet Count (auto) 282 10^3/uL (140-450); Red Blood Cells 4.11 10^6/uL (4.0-5.20); Red Cell Distribution Width 14.7 % (11.8-14.3); White Blood Cell 8.2 10^3/uL (4.4-10.8)
[2024-07-03 08:03] LABS: Albumin 3.8 g/dL (3.2-4.8); Anion Gap 11 (5-15); BUN/Creatinine Ratio 9.5 (10.0-20.0); Calcium 9.2 mg/dL (8.7-10.4); Carbon Dioxide 24 mmol/L (20-31); Chloride 105 mmol/L (98-107); Glucose 82 mg/dL (74-106); Sodium 140 mmol/L (136-145); Total Protein 6.5 g/dL (5.7-8.2)
[2024-07-03 08:15] LABS: Alanine Aminotransferase 47 U/L (7-40); Aspartate Aminotransferase 62 U/L (13-40); Bilirubin, Total 1.6 mg/dL (0.2-1.0); Blood Urea Nitrogen 7 mg/dL (9-23)
[2024-07-03] MEDS: MULTIPLE VITAMIN TAB PO SCH (09:18)
[2024-07-03] MEDS: FOLIC ACID 1 MG TAB PO SCH (09:18)
[2024-07-03] MEDS: THIAMINE HCL 100 MG TAB PO SCH (09:18)
[2024-07-03 10:11] LABS: Alkaline Phosphatase 56 U/L (46-116)
--- NOTE | 2024-07-03 18:24 | DVHPN2 ---
Subjective still having some nausea, some tremors Changes from previous H/P or p: No Changes Objective Vitals Vital Signs Date Time Temp Pulse Resp B/P (MAP) Pulse Ox O2 Delivery O2 Flow Rate FiO2 07/03/24 17:00 98.0 84 16 147/87 (107) 100 98.0 07/03/24 08:00 Room Air* 0 21 Intake/Output Intake and Output 07/03/24 07:00 Intake Total 1900 ml Balance 1900 ml Intake Oral 600 ml IV Total 1300 ml # Voids 2 General Appearance: Alert, Oriented X3 HEENT: PERRLA Lungs: Clear to auscultation Abdomen: Normal bowel sounds, Soft, No tenderness Medications Current Medications Medications Dose Ordered Sig/Joseph Route Start Time Stop Time Status Last Admin Dose Admin Thiamine HCl 100 mg DAILY PO 07/03/24 10:00 07/03/24 09:18 100 MG Folic Acid 1 mg DAILY PO 07/03/24 10:00 07/03/24 09:18 1 MG Multivitamins 1 tab DAILY PO 07/03/24 10:00 07/03/24 09:18 1 TAB Ondansetron HCl 4 mg Q4HPRN PRN IV 07/02/24 11:15 Sodium Chloride 1,000 ml @ 100 mls/hr Q10H IV 07/02/24 11:15 07/03/24 17:15 100 MLS/HR Acetaminophen/ Hydrocodone Bitart 1 tab Q4HP PRN PO 07/02/24 11:15 Acetaminophen 650 mg Q6HP PRN PO 07/02/24 11:15 Laboratory Results Laboratory Tests 07/03/24 06:36 Chemistry Test 07/03/24 06:36 Albumin 3.8 g/dL (3.2-4.8) Calcium Level 9.2 mg/dL (8.7-10.4) Total Protein 6.5 g/dL (5.7-8.2) LFT Test 07/03/24 06:36 Alanine Aminotransferase (ALT) 47 U/L (7-40) H Alkaline Phosphatase 56 U/L (46-116) Aspartate Amino Transferase (AST) 62 U/L (13-40) H Total Bilirubin 1.6 mg/dL (0.2-1.0) H Assessment/Plan Assessment/Plan ETOH withdrawal mild now on prn benzos, continue to monitor Generalized weakness likely due to ETOH abuse Plan discussed with: Patient Date of Service: Jul 03, 2024 Billing Provider: JAYDEN MONGE MD Common Visit Codes: [id number] INP/OBS CARE(HIGH) JAYDEN MONGE MD Jul 03, 2024 18:24
[2024-07-04] VITALS (10 sets, daily range): BP systolic 110–138; BP diastolic 74–83; PULSE 82–106; RESP 17–20; TEMP 36.2; O2SAT 96–100
[2024-07-04 06:14] LABS: Anion Gap 11 (5-15); Carbon Dioxide 22 mmol/L (20-31); Chloride 104 mmol/L (98-107); Sodium 137 mmol/L (136-145)
[2024-07-04 06:15] LABS: Calcium 9.2 mg/dL (8.7-10.4)
[2024-07-04 06:21] LABS: BUN/Creatinine Ratio 7.4 (10.0-20.0); Blood Urea Nitrogen < 5 mg/dL (9-23); Glucose 108 mg/dL (74-106); Potassium 3.2 mmol/L (3.5-5.1)
[2024-07-04] MEDS ORDERED: LORA-1123 PO (13:20)
[2024-07-04] MEDS: ACETAMINOPHEN 325 MG TAB PO PRN (15:54)
--- NOTE | 2024-07-04 16:42 | DVHDS2 ---
Discharge Summary Date of Admission Jul 02, 2024 at 11:05 Date of Discharge: Jul 04, 2024 Labs/Diagnostic Data: Laboratory Results Test 07/04/24 05:09 07/03/24 06:36 07/02/24 12:42 07/02/24 09:33 Sodium Level 137 mmol/L (136-145) Potassium Level 3.2 mmol/L (3.5-5.1) Chloride Level 104 mmol/L (98-107) Carbon Dioxide Level 22 mmol/L (20-31) Anion Gap 11 (5-15) Blood Urea Nitrogen < 5 mg/dL (9-23) Creatinine 0.68 mg/dL (0.550-1.02) Glomerular Filtration Rate Calc 118 mL/min (>90) BUN/Creatinine Ratio 7.4 (10.0-20.0) Serum Glucose 108 mg/dL (74-106) Calcium Level 9.2 mg/dL (8.7-10.4) White Blood Count 8.2 10^3/uL (4.4-10.8) Red Blood Count 4.11 10^6/uL (4.0-5.20) Hemoglobin 12.3 g/dL (12.2-16.2) Hematocrit 36.4 % (36.0-46.0) Mean Corpuscular Volume 88.5 fL (80.0-100.0) Mean Corpuscular Hemoglobin 30.0 pg (28.0-32.0) Mean Corpuscular Hemoglobin Concent 33.9 g/dL (32.0-36.0) Red Cell Distribution Width 14.7 % (11.8-14.3) Platelet Count 282 10^3/uL (140-450) Mean Platelet Volume 8.5 fL (6.9-10.8) Neutrophils (%) (Auto) 63.5 % (37.0-80.0) Lymphocytes (%) (Auto) 24.6 % (10.0-50.0) Monocytes (%) (Auto) 7.2 % (0.0-12.0) Eosinophils (%) (Auto) 3.6 % (0.0-7.0) Basophils (%) (Auto) 1.1 % (0.0-2.0) Neutrophils # (Auto) 5.2 10 ^3/uL (1.6-8.6) Lymphocytes # (Auto) 2.0 10 ^3/uL (0.4-5.4) Monocytes # (Auto) 0.6 10 ^3/uL (0-1.3) Eosinophils # (Auto) 0.3 10 ^3/uL (0-0.8) Basophils # (Auto) 0.1 10 ^3/uL (0-0.2) Nucleated Red Blood Cells 0.0 % Total Bilirubin 1.6 mg/dL (0.2-1.0) Aspartate Amino Transferase (AST) 62 U/L (13-40) Alanine Aminotransferase (ALT) 47 U/L (7-40) Alkaline Phosphatase 56 U/L (46-116) Total Protein 6.5 g/dL (5.7-8.2) Albumin 3.8 g/dL (3.2-4.8) Ammonia < 10 umol/L (11-32) Phosphorus Level 3.3 mg/dL (2.4-5.1) Lactate Dehydrogenase 500 U/L (120-246) Amylase Level 146 U/L (30-118) Lipase 54 U/L (12-53) Hepatitis A IgM Antibody Negative Hepatitis B Surface Antigen Negative (Negative) Hepatitis B Core IgM Antibody Negative (Negative) Hepatitis C Antibody Negative (Negative) Test 07/02/24 09:22 Prothrombin Time 10.6 sec (9.3-11.8) Prothrombin Time INR 1.00 (0.9-1.15) Magnesium Level 1.9 mg/dL (1.6-2.6) Troponin I High Sensitivity < 3 ng/L (</=34) Plasma/Serum Blood Alcohol 19.1 mg/dL (<10) Other Laboratory Tests 07/04/24 05:09 07/03/24 06:36 Brief Hx & Hospital Course: nikhil Tierney is a 34-year-old female with past medical history of ETOH abuse who presents to the ED with generalized weakness and ETOH withdrawals. She reports that she drinks about 5 large cups (240oz) each per day of hard liquor for the last 1 year. 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 Patient reports that she has not sought out help or seeked rehab. She denies tremors, visual hallucinations, auditory hallucinations, nausea, vomiting, diarrhea, abdominal pain, chest pain, shortness of breath, fever, chills, and dizziness. Her symptoms of withdrawal improved and minimal tremors and tolerating diet Condition at Discharge: Good Final Diagnosis/Problems List alcohol withdrawal Generalized weakness likely due to ETOH abuse Discharge Disposition: Home Discharge Instruct/Medications Diet: Regular Activity: No Restrictions, As Tolerated Follow Up/Referral: pcp in 7 days Medications: ativan Discharge Statement: "Patient was advised to return to the ER or call 911 if any headaches, dizziness, shortness of breath, chest pain, abdominal pain, bleeding, fevers, or worsening of medical condition. Patient was counseled about treatment plan, medications, possible side effects, patientverbalized understanding. All questions were answered to the best of my ability. This discharge took greater then 30 minutes in planning, reviewing documentation, counseling the patient, and discussing with other team members." ASSESSMENT ASSESSMENT Assessment alcohol withdrawal Date of Service: Jul 04, 2024 Billing Provider: JAYDEN MONGE MD Common Visit Codes: 57155-DJV/OBS DISCH DAY >30min JAYDEN MONGE MD Jul 04, 2024 16:42
[2024-07-05 22:07] LABS: Vitamin B1, Whole Blood 275.3 nmol/L (66.5-200.0)
== END 2024-07-04 17:50 | disposition home or self-care (01) | DRG 775 ==
LOC: ER 08:52 → OVERFLOW 11:05 → TELE-WESTW 22:15
PROVIDERS: ADMIT Hospitalist; ATTEND Hospitalist
DX: F10.139 Alcohol abuse with withdrawal, unspecified (principal); E87.6 Hypokalemia; I10 Essential (primary) hypertension; Y90.0 Blood alcohol level of less than 20 mg/100 ml; R00.0 Tachycardia, unspecified; Z56.0 Unemployment, unspecified; Z79.1 Long term (current) use of non-steroidal anti-inflammatories (NSAID); Z79.899 Other long term (current) drug therapy
CPT/HCPCS: 36415; 71045; 80048; 80053; 80074; 80320; 82140; 82150; 82247; 83615; 83690; 83735; 84100; 84425; 84484; 85025; 85610; 93005; 96361; 96374; 96375; 99291; G0378

== ENCOUNTER 2024-07-21 16:58 | Emergency (ER) | payer OTHER ==
[~2024-07-21] VITALS: Ht 160 cm; Wt 52.3 kg
[~2024-07-21 16:58] MED LIST changes: +LORA-1123 PO
[2024-07-21 18:36] VITALS: BP 124/82; PULSE 124; RESP 16; TEMP 98.3; O2SAT 99
[2024-07-21] MEDS ORDERED: DOXY100C4 PO (19:43)
--- NOTE | 2024-07-21 19:43 | ED.PDOC ---
NEUROSURGICAL NURSE HPI Comments pt reports cyst in vaginal area x 1 week, increasing in size and pain last 3 day s. [facility] with Bartholin cyst was told to follow up in the ER for drainage fevers, chills, nausea vomiting Chief Complaint: Abscess Time Seen by MD: 17:53 Reviewed Notes: Nurses Notes, Medications, Allergies Allergies: Coded Allergies: NO KNOWN ALLERGIES (Unverified , 03/17/22) Home Meds Active Scripts Doxycycline Hyclate (Doxycycline Hyclate) 100 Mg Cap, 100 MG PO BID for 7 Days, #14 CAP Prov:NKECHIINÉS BRIMMER BLOCKER 07/21/24 Lorazepam (Lorazepam) 1 Mg Tab, 1 TAB PO Q8HP PRN for 7 Days, #15 TAB Prov:CIERRA ROSEN ANIMAL RESEARCHER 07/04/24 Folic Acid (Folic Acid) 1 Mg Tab, 1 MG PO DAILY, #30 TAB Prov:DALE BOLAND MD 06/21/24 Thiamine HCl (Thiamine Hydrochloride) 100 Mg Tab, 100 MG PO DAILY, #30 TAB Prov:DALE BOLAND MD 06/21/24 Information Source: Patient Past Medical History PAST MEDICAL HISTORY: Denies Surgical History: Denies all surgeries 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 INSTALLER Hx Family History Family History: Reviewed,noncontributory to illness Social History Smoker: Non-Smoker Alcohol: Heavy Drugs: Denies Drug Use Lives In: Home Constitutional: denies: chills, diaphoresis, fatigue, fever, malaise, sweats, weakness, others EENTM: denies: blurred vision, double vision, ear bleeding, ear discharge, ear drainage, ear pain, ear ringing, eye pain, eye redness, hearing loss, mouth pain, mouth swelling, nasal discharge, nose bleeding, nose congestion, nose pain, photophobia, tearing, throat pain, throat swelling, voice changes, others Respiratory: denies: cough, hemoptysis, orthopnea, SOB at rest, shortness of breath, SOB with excertion, stridor, wheezing, others Cardiovascular: denies: chest pain, dizzy spells, diaphoresis, Dyspnea on exertion, edema, irregular heart beat, left arm pain, lightheadedness, palpitations, PND, syncope, others Gastrointestinal: denies: abdomen distended, abdominal pain, blood streaked bowels, constipated, diarrhea, dysphagia, difficulty swallowing, hematemesis, melena, nausea, poor appetite, poor fluid intake, rectal bleeding, rectal pain, vomiting, others Genitourinary: reports: others (Abscess left labia); denies: abnormal vagina bleeding, burning, dyspareunia, dysuria, flank pain, frequency, hematuria, incontinence, pain, , vagina discharge, urgency Neurological: denies: dizziness, fainting, headache, left sided numbness, left sided weakness, numbness, paresthesia, pre-existing deficit, right sided numbness, right sided weakness, seizure, speech problems, tingling, tremors, weakness, others Musculoskeletal: denies: back pain, gout, joint pain, joint swelling, muscle pain, muscle stiffness, neck pain, others Integumetry: denies: bruises, change in color, change in hair/nails, dryness, laceration, lesions, lumps, rash, wounds, others Allergic/Immunocompromised: denies: Difficulty Healing, Frequent Infections, Hives, Itching, others Hematologic/Lymphatic: denies: anemia, blood clots, easy bleeding, easy bruising, swollen glands, others Endocrine: denies: excessive hunger, excessive sweating, excessive thirst, excessive urination, flushing, intolerance to cold, intolerance to heat, unexplained weight gain, unexplained weight loss, others Psychiatric: denies: anxiety, bipolar disorder, depression, hopeless, panic disorder, schizophrenia, sleepless, suicidal, others Physical Exam General Appearance: No Apparent Distress, Normal HEENT: Pharynx Normal Neck: Full Range of Motion, Non-Tender Respiratory: Chest Non-Tender, Lungs Clear, No Respiratory Distress, Normal Breath Sounds Cardiovascular: No Edema, No JVD, No Murmur, No Gallop, Normal Peripheral Pulses, Regular Rate/Rhythm Breast Exam: Deferred Gastrointestinal: No Organomegaly, Non Tender, No Pulsatile Mass, Normal Bowel Sounds, Soft Genitalia: Other (Erythemic edematous Bartholin cyst abscess left labia no noted drainage) Pelvic: Deferred Rectal: Deferred Extremities: Normal capillary refill, Normal inspection, Normal range of motion, Non-tender, No pedal edema Musculoskeletal : Apperance: Normal Neurologic: Alert, gyn physician II-XII nml as Tested, No Motor Deficits, Normal Affect, Normal Mood, No Sensory Deficits Cerebellar Function: Normal Reflexes: Normal Skin: Dry, Normal Color, Warm Lymphatic: No Adenopathy Was a procedure done? Was a procedure done?: Yes Sedation Sedation?: No Informed consent obtained: Yes Bartholin Cyst Indication: Bartholin Abscess Anesthetic: Nothing Prep: Betadine Drainage: Pus, Blood Wound: Incised Informed consent obtained: Yes Risks/benefits/alt described: Yes Notes Tolerated well minimal blood loss large amount of white drainage patient notices improvement in pain after procedure Differential Diagnosis (HOME FIRE ALARM INSTALLER) Mass / Lesion: Bartholin Abscess, Perianal Abscess X-Ray, Labs, Meds, VS Vital Signs Date Time Temp Pulse Resp B/P (MAP) Pulse Ox O2 Delivery O2 Flow Rate FiO2 07/21/24 18:36 98.3 124 16 124/82 (96) 99 98.3 07/21/24 18:36 124 16 99 Room Air 07/21/24 17:25 98.3 124 16 124/82 (96) 99 98.3 X-Ray, Labs, Meds, VS Comment See procedure note. We will start prophylactic antibiotics doxycycline twice daily x7 days patient is a continue with Sitz baths. Max as prescribed side effects discussed. Patient follow up with PCP in 2-3 days for re-evaluation or OBGYN referral. Advised to wear pads monitor for drainage and increasing bleeding ER return precautions given patient indicates understanding and agrees with discharge plan of care Time of 1ST Reevaluation: 19:46 Reevaluation 1ST: Improved Patient Education/Counseling: Diagnosis, Treatment, Prognosis, Need For Follow Up Family Education/Counseling: No Family Present Departure 1 Departure Time of Disposition: 19:46 Impression: Primary Impression: Bartholin gland cyst Disposition: HOME / SELF CARE / HOMELESS Condition: Stable e-Prescriptions Doxycycline Hyclate (Doxycycline Hyclate) 100 Mg Cap 100 MG PO BID for 7 Days, #14 CAP Prov: INÉS ARBOLEDA 07/21/24 Discharged With: Self Critical Care Note Critical Care Time?: No Stability Stability form required: INÉS Leung Jul 21, 2024 19:43
== END 2024-07-21 19:49 | disposition home or self-care (01) ==
LOC: ER 16:58
DX: N75.0 Cyst of Bartholin's gland (principal); Z79.899 Other long term (current) drug therapy
CPT/HCPCS: 56420

== ENCOUNTER 2024-10-20 13:14 | Emergency (ER) | payer OTHER ==
[~2024-10-20] VITALS: Ht 160 cm; Wt 51.9 kg
--- NOTE | 2024-10-20 14:49 | ED.PDOC ---
Musculoskeletal HPI Comments This is a 34 year old female presenting to the ED with chief complaint of left foot pain. Patient reports that she had accidentally injured her left foot in a fall, rolling her left foot inwards and causing immediate pain and swelling. Patient denies any numbness, weakness, tingling, or further injury. Chief Complaint: Lower Extremity Time Seen by MD: 14:47 Primary Care Provider: none Reviewed Notes: Nurses Notes, Medications, Allergies Allergies: Coded Allergies: NO KNOWN ALLERGIES (Unverified , 03/17/22) Home Meds Active Scripts Lorazepam (Lorazepam) 1 Mg Tab, 1 TAB PO Q8HP PRN for 7 Days, #15 TAB Prov:CIERRA ROSEN NP 07/04/24 Folic Acid (Folic Acid) 1 Mg Tab, 1 MG PO DAILY, #30 TAB Prov:DALE BOLAND MD 06/21/24 Thiamine HCl (Thiamine Hydrochloride) 100 Mg Tab, 100 MG PO DAILY, #30 TAB Prov:DALE BOLAND MD 06/21/24 Information Source: Patient Mode of Arrival: Ambulatory Location: Left Extremity Location: Foot Timing: Hours Prehospital treatment: None Severity: Moderate Able to Move Extremity: Yes Bear Weight: Limited Pain: Moderate Mechanism: Twisting Circumstances: Fall Onset of Symptoms: After Trauma Symptoms: Swelling, Pain DVT Risk Factors: NONE Last Tetanus: UTD Associated signs and symptoms: Foot pain Past Medical History PAST MEDICAL HISTORY: Denies Surgical History: Denies all surgeries 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 SENIOR DATABASE PROGRAMMER Hx Family History Family History: Reviewed,noncontributory to illness Social History Smoker: Non-Smoker Alcohol: Heavy Drugs: Denies Drug Use Lives In: Home Constitutional: denies: chills, diaphoresis, fatigue, fever, malaise, sweats, weakness, others EENTM: denies: blurred vision, double vision, ear bleeding, ear discharge, ear drainage, ear pain, ear ringing, eye pain, eye redness, hearing loss, mouth pain, mouth swelling, nasal discharge, nose bleeding, nose congestion, nose pain, photophobia, tearing, throat pain, throat swelling, voice changes, others Respiratory: denies: cough, hemoptysis, orthopnea, SOB at rest, shortness of breath, SOB with excertion, stridor, wheezing, others Cardiovascular: denies: chest pain, dizzy spells, diaphoresis, Dyspnea on exertion, edema, irregular heart beat, left arm pain, lightheadedness, palpitations, PND, syncope, others Gastrointestinal: denies: abdomen distended, abdominal pain, blood streaked bowels, constipated, diarrhea, dysphagia, difficulty swallowing, hematemesis, melena, nausea, poor appetite, poor fluid intake, rectal bleeding, rectal pain, vomiting, others Genitourinary: denies: abnormal vagina bleeding, burning, dyspareunia, dysuria, flank pain, frequency, hematuria, incontinence, pain, , vagina discharge, urgency, others Neurological: denies: dizziness, fainting, headache, left sided numbness, left sided weakness, numbness, paresthesia, pre-existing deficit, right sided numbness, right sided weakness, seizure, speech problems, tingling, tremors, weakness, others Musculoskeletal: reports: others (Left foot pain and swelling); denies: back pain, gout, joint pain, joint swelling, muscle pain, muscle stiffness, neck pain Integumetry: denies: bruises, change in color, change in hair/nails, dryness, laceration, lesions, lumps, rash, wounds, others Allergic/Immunocompromised: denies: Difficulty Healing, Frequent Infections, Hives, Itching, others Hematologic/Lymphatic: denies: anemia, blood clots, easy bleeding, easy bruising, swollen glands, others Endocrine: denies: excessive hunger, excessive sweating, excessive thirst, excessive urination, flushing, intolerance to cold, intolerance to heat, unexplained weight gain, unexplained weight loss, others Psychiatric: denies: anxiety, bipolar disorder, depression, hopeless, panic disorder, schizophrenia, sleepless, suicidal, others All Other Systems: Reviewed and Negative Physical Exam General Appearance: No Apparent Distress, Normal HEENT: Normal ENT Inspection, Pharynx Normal, TMs Normal Neck: Full Range of Motion, Non-Tender, Normal, Normal Inspection Respiratory: Chest Non-Tender, Lungs Clear, No Accessory Muscle Use, No Respiratory Distress, Normal Breath Sounds Cardiovascular: No Edema, No JVD, No Murmur, No Gallop, Normal Peripheral Pulses, Regular Rate/Rhythm Breast Exam: Deferred Gastrointestinal: No Organomegaly, Non Tender, No Pulsatile Mass, Normal Bowel Sounds, Soft Genitalia: Deferred Pelvic: Deferred Rectal: Deferred Extremities: No calf tenderness, Normal capillary refill, Normal inspection, Normal range of motion, Non-tender, No pedal edema Musculoskeletal : Location: Left Extremity Location: Foot Apperance: Tenderness (Left dorsal foot tenderness and swelling) Neurologic: Alert, clinical resource coordinator II-XII nml as Tested, No Motor Deficits, Normal Affect, Normal Mood, No Sensory Deficits Cerebellar Function: Normal Reflexes: Normal Skin: Dry, Normal Color, Warm Lymphatic: No Adenopathy Was a procedure done? Was a procedure done?: No Differential Diagnosis EXT Differential Diagnosis: Cellulitis, Fracture, Sprain, Dislocation, Gout, Contusion, Strain, Arthritis X-Ray, Labs, Meds, VS Vital Signs Date Time Temp Pulse Resp B/P (MAP) Pulse Ox O2 Delivery O2 Flow Rate FiO2 10/20/24 13:45 97.8 100 16 157/96 (116) 96 97.8 Time of 1ST Reevaluation: 15:46 Reevaluation 1ST: Unchanged Patient Education/Counseling: Diagnosis, Treatment, Prognosis, Need For Follow Up Family Education/Counseling: No Family Present Additional Information Previous visits reviewed: 07/21/24 for Bartholin cyst The following tests were ordered, and results were reviewed by me: Left Foot XR Additional Information was gathered from interviewing the following independent historians: None I reviewed and agreed with the following test results read by other providers: Left foot XR I discussed treatment and results with medical personnel and: patient Comprehensive systems review obtained and negative except for what is stated in the HPI. Departure 1 Departure Time of Disposition: 16:27 Impression: Primary Impression: Sprain of foot, left Qualified Codes: S93.602A - Unspecified sprain of left foot, initial encounter Disposition: HOME / SELF CARE / HOMELESS Condition: Good e-Prescriptions Ibuprofen Micronized (MOTRIN TABLET) 600 Mg Tb 600 MG PO TID PRN, #40 TAB *Black box warning-NSAIDS can increase risk of UT & hypertension, GI irritation, ulceration, bleed, perferation. Do not use post cardiac surgery. Use short duration/lowest effective dose. Prov: JILLIAN PURI MD 10/20/24 Discharged With: Self Critical Care Note Critical Care Time?: No Stability Stability form required: No Heart Score Heart Score: Heart Score Response (Comments) Value History N/A 0 EKG N/A 0 Age N/A 0 Risk Factors N/A 0 Troponin N/A 0 Total 0 I personally scribed for JILLIAN PURI MD ([email or web address]) on 10/20/24 at 14:49. Electronically submitted by Navid Rodríguez ([email or web address]). JILLIAN PURI MD Oct 20, 2024 14:49
--- NOTE | 2024-10-20 15:51 | DVH ---
XY L FOOT 3 VIEW XRAY, INDICATION: injury TECHNICAL DATA: Frontal, oblique and lateral views were obtained of the left foot. COMPARISON: None FINDINGS: No fracture is identified. Joint spaces are maintained. Alignment is anatomic. The hallux sesamoids a ppear normal. Soft tissues are within normal limits. IMPRESSION: No acute fracture or dislocation of the left foot.
[2024-10-20] MEDS ORDERED: IBU600T PO (16:28)
[2024-10-20 18:15] VITALS: BP 138/72; PULSE 74; RESP 18; TEMP 97.2; O2SAT 98
== END 2024-10-20 18:19 | disposition home or self-care (01) ==
LOC: ER 13:14
DX: S93.692A Other sprain of left foot, initial encounter (principal); W18.39XA Other fall on same level, initial encounter; Y93.89 Activity, other specified; Y92.89 Other specified places as the place of occurrence of the external cause; Y99.8 Other external cause status
CPT/HCPCS: 73630